=== PATIENT | female | born 1970 | race Caucasian/White ===

== ENCOUNTER 2021-09-16 02:16 | Emergency (ER) | payer MEDICAID, OTHER ==
[~2021-09-16] VITALS: Ht 170.2 cm; Wt 59.0 kg
[2021-09-16 02:20] VITALS: BP 135/88
== END 2021-09-16 04:45 | disposition left against medical advice (07) ==
LOC: ER 02:16
DX: M54.9 Dorsalgia, unspecified (principal); Z53.21 Procedure and treatment not carried out due to patient leaving prior to being seen by health care provider

== ENCOUNTER → 2022-02-09 | Emergency (ER) | payer MEDICAID ==
[~2022-02-09] VITALS: Ht 170.2 cm; Wt 60.0 kg
[~2022-02-09] MED LIST: CYCL-837 PO; IBUPROFEN 600 MG TAB PO ONE
[2022-02-09 03:36] VITALS: BP 136/75
== END | disposition home or self-care (01) ==
LOC: ER 02:52
DX: M41.24 Other idiopathic scoliosis, thoracic region (principal)
CPT/HCPCS: 72070

== ENCOUNTER 2023-09-13 23:40 | Emergency (ER) | payer MEDICAID ==
[~2023-09-13] VITALS: Ht 170.2 cm; Wt 60.0 kg
[~2023-09-13 23:40] MED LIST changes: +IBUP-1454 PO; -IBUPROFEN 600 MG TAB PO ONE
[2023-09-14 01:11] LABS: Basophils # (auto) 0 10 ^3/uL (0-0.2); Eosinophils # (auto) 0.1 10 ^3/uL (0-0.8); Hematocrit 38.8 % (36.0-46.0); Hemoglobin 12.9 g/dL (12.2-16.2); Lymphocytes # (auto) 1.4 10 ^3/uL (0.4-5.4); Lymphocytes % (auto) 34.1 % (10.0-50.0); Mean Corpuscular Hemoglobin 28.9 pg (28.0-32.0); Mean Corpuscular Hgb Conc. 33.2 g/dL (32.0-36.0); Mean Corpuscular Volume 87.1 fL (80.0-100.0); Monocytes # (auto) 0.3 10 ^3/uL (0-1.3); Monocytes % (auto) 7.5 % (0.0-12.0); Neutrophils # (auto) 2.2 10 ^3/uL (1.6-8.6); Neutrophils % (auto) 54.4 % (37.0-80.0); Nucleated Red Blood Cells % 0.1 %; Red Blood Cells 4.46 10^6/uL (4.0-5.20); Red Cell Distribution Width 13.7 % (11.8-14.3)
[2023-09-14 01:26] LABS: Alanine Aminotransferase 14 U/L (7-40); Alkaline Phosphatase 100 U/L (46-116); Calcium 9.7 mg/dL (8.7-10.4); Carbon Dioxide 29 mmol/L (20-30); Chloride 108 mmol/L (98-107); Glucose 83 mg/dL (74-106)
[2023-09-14 01:27] LABS: Albumin 4.5 g/dL (3.2-4.8); Anion Gap 2 (5-15); Aspartate Aminotransferase 12 U/L (13-40); BUN/Creatinine Ratio 22.2 (10.0-20.0); Bilirubin, Total 0.5 mg/dL (0.2-1.0); Blood Urea Nitrogen 18 mg/dL (9-23); Potassium 3.8 mmol/L (3.5-5.1); Sodium 139 mmol/L (136-145); Total Protein 7.1 g/dL (5.7-8.2)
[2023-09-14] MEDS: IBUPROFEN 600 MG TAB PO ONE (02:11)
[2023-09-14 02:15] VITALS: BP 139/89; PULSE 84; RESP 18; TEMP 98; O2SAT 98
== END 2023-09-14 02:18 | disposition home or self-care (01) ==
LOC: ER 23:40
DX: I27.1 Kyphoscoliotic heart disease (principal); M41.20 Other idiopathic scoliosis, site unspecified; G89.29 Other chronic pain; M54.50 Low back pain, unspecified
CPT/HCPCS: 36415; 80053; 85025

== ENCOUNTER 2024-09-10 01:29 | Emergency (ER) | payer MEDICAID ==
[~2024-09-10] VITALS: Ht 165.1 cm; Wt 59.4 kg
--- NOTE | 2024-09-10 02:00 | ED.PDOC ---
General HPI Comments This is a 64-year-old female C/C of "greenish" vaginal discharge x1 week. Patient also reports dysuria. Pt denies hematuria, odor, pelvic or back pain. Denies fever, chills, nausea or vomiting notes no abdominal pain chest pain shortness breath or dizziness. Time Seen by MD: 01:31 Primary Care Provider: ELIEL Reviewed notes: Nurses Notes, Medications, Allergies Allergies: Coded Allergies: NO KNOWN ALLERGIES (Unverified , 09/16/21) Home Meds Active Scripts Doxycycline Hyclate (Doxycycline Hyclate) 100 Mg Cap, 100 MG PO BID for 10 Days, #20 CAP Prov:NABIL URBANO [facility] 09/10/24 Fluconazole (Fluconazole) 200 Mg Tab, 1 TAB PO ONCE for 1 Day, #1 TAB Prov:NABIL URBANO [facility] 09/10/24 Valacyclovir Hcl (Valtrex) 1 Gm Tab, 1 TAB PO DAILY for 10 Days, #10 TAB Prov:NABIL URBANO [facility] 09/10/24 Ibuprofen (Ibuprofen) 600 Mg Tab, 1 TAB PO TID, #30 TAB Prov:TRUDY AVILA [facility] 07/03/23 Cyclobenzaprine Hcl (Cyclobenzaprine Hcl) 5 Mg Tab, 1 TAB PO QPM PRN for 2 Days, #2 TAB Prov:BHARATH MENDEZ [employer] 02/09/22 Information Source: Patient Past Medical History PAST MEDICAL HISTORY: Denies Surgical History: Denies all surgeries [employer] History: No Pertinent [employer] History Family History Family History: Reviewed,noncontributory to illness Social History Smoker: Non-Smoker Alcohol: Denies ETOH Use Drugs: Denies Drug Use Constitutional: denies: chills, diaphoresis, fatigue, fever, malaise, sweats, weakness, others EENTM: denies: blurred vision, double vision, ear bleeding, ear discharge, ear drainage, ear pain, ear ringing, eye pain, eye redness, hearing loss, mouth pain, mouth swelling, nasal discharge, nose bleeding, nose congestion, nose pain, photophobia, tearing, throat pain, throat swelling, voice changes, others Respiratory: denies: cough, hemoptysis, orthopnea, SOB at rest, shortness of breath, SOB with excertion, stridor, wheezing, others Cardiovascular: denies: chest pain, dizzy spells, diaphoresis, Dyspnea on exertion, edema, irregular heart beat, left arm pain, lightheadedness, palpitati ons, PND, syncope, others Gastrointestinal: denies: abdomen distended, abdominal pain, blood streaked bowels, constipated, diarrhea, dysphagia, difficulty swallowing, hematemesis, melena, nausea, poor appetite, poor fluid intake, rectal bleeding, rectal pain, vomiting, others Genitourinary: reports: burning, vagina discharge; denies: abnormal vagina bleeding, dyspareunia, dysuria, flank pain, frequency, hematuria, incontinence, pain, , urgency, others Neurological: denies: dizziness, fainting, headache, left sided numbness, left sided weakness, numbness, paresthesia, pre-existing deficit, right sided numbness, right sided weakness, seizure, speech problems, tingling, tremors, weakness, others Musculoskeletal: denies: back pain, gout, joint pain, joint swelling, muscle pain, muscle stiffness, neck pain, others Integumetry: denies: bruises, change in color, change in hair/nails, dryness, laceration, lesions, lumps, rash, wounds, others Allergic/Immunocompromised: denies: Difficulty Healing, Frequent Infections, Hives, Itching, others Hematologic/Lymphatic: denies: anemia, blood clots, easy bleeding, easy bruising, swollen glands, others Endocrine: denies: excessive hunger, excessive sweating, excessive thirst, excessive urination, flushing, intolerance to cold, intolerance to heat, unexplained weight gain, unexplained weight loss, others Psychiatric: denies: anxiety, bipolar disorder, depression, hopeless, panic disorder, schizophrenia, sleepless, suicidal, others Physical Exam General Appearance: No Apparent Distress, Normal HEENT: Pharynx Normal Neck: Full Range of Motion, Non-Tender Respiratory: Lungs Clear, No Respiratory Distress, Normal Breath Sounds Cardiovascular: No Edema, No JVD, No Murmur, No Gallop, Normal Peripheral Pulses, Regular Rate/Rhythm Breast Exam: Deferred Gastrointestinal: No Organomegaly, Non Tender, No Pulsatile Mass, Normal Bowel Sounds, Soft, Other (Negative CVA tenderness) Genitalia: Deferred Pelvic: Deferred Rectal: Deferred Extremities: Normal capillary refill, Normal inspection, Normal range of motion, Non-tender, No pedal edema Musculoskeletal : Apperance: Normal Neurologic: Alert, alcoholism worker II-XII nml as Tested, No Motor Deficits, Normal Affect, Normal Mood, No Sensory Deficits Cerebellar Function: Normal Reflexes: Normal Skin: Dry, Normal Color, Warm Lymphatic: No Adenopathy Was a procedure done? Was a procedure done?: No Differential Diagnosis Kidney stone (Female): Pyelonephritis, Urinary obstruction, Urolithiasis X-Ray, Labs, Meds, VS Vital Signs Date Time Temp Pulse Resp B/P (MAP) Pulse Ox O2 Delivery O2 Flow Rate FiO2 09/10/24 01:30 98.2 98 17 148/91 (110) 98 98.2 Lab Test 09/10/24 02:30 Range/Units Urine Color Yellow Yellow Urine Clarity Clear Clear Urine pH 6.5 5.0-9.0 Urine Specific [place] 1.030 1.001-1.035 Urine Protein Negative Negative Urine Ketones Negative Negative Urine Blood Negative Negative /uL Urine Nitrite Negative Negative Urine Bilirubin Negative Negative Urine Urobilinogen 2 H Negative mg/dL Urine Leukocyte Esterase 1+ Negative /uL Urine RBC 2 0 - 4 /hpf Urine Microscopic WBC 6 H 0-5 /HPF Urine Squamous Epithelial Cells Few <5 /hpf Urine Bacteria None seen None Seen /hpf Urine Mucus Few None Seen Urine Glucose Normal Normal mg/dL Current Medications Medications (Trade) Dose Ordered Sig/Lori Route Start Time Stop Time Status Last Admin Ceftriaxone Sodium (Rocephin) 1,000 mg ONCE ONCE IM 09/10/24 03:45 09/10/24 03:46 DC 09/10/24 04:18 X-Ray, Labs, Meds, VS Comment Patient given Rocephin 1 g IM for UTI and possible STD. Script trial of doxycycline twice daily times 10 days and fluconazole. 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 Advice take medications as prescribed at effects discussed. Follow up with the PCP in two days ER return precautions given patient indicates understanding and agrees with discharge plan of care. Time of 1ST Reevaluation: 02:00 Reevaluation 1ST: Unchanged Time of 2ND Reevaluation: 03:38 Reevaluation 2ND: Improved Patient Education/Counseling: Diagnosis, Treatment, Prognosis, Need For Follow Up Family Education/Counseling: No Family Present Departure 1 Departure Time of Disposition: 03:38 Impression: Primary Impression: Cystitis Additional Impressions: Vaginitis Qualified Codes: N76.0 - Acute vaginitis Herpes simplex type 2 infection Disposition: HOME / SELF CARE / HOMELESS Condition: Stable e-Prescriptions Doxycycline Hyclate (Doxycycline Hyclate) 100 Mg Cap 100 MG PO BID for 10 Days, #20 CAP Prov: NABIL URBANO 09/10/24 Fluconazole (Fluconazole) 200 Mg Tab 1 TAB PO ONCE for 1 Day, #1 TAB Prov: NABIL URBANO 09/10/24 Valacyclovir Hcl (Valtrex) 1 Gm Tab 1 TAB PO DAILY for 10 Days, #10 TAB Prov: NABIL URBANO 09/10/24 Discharged With: Self Critical Care Note Critical Care Time?: No Stability Stability form required: No NABIL URBANO September 10, 2024 02:00
[2024-09-10 02:49] LABS: Urine Bacteria None Seen /hpf (None Seen)
[2024-09-10 02:59] LABS: Urine Blood Negative /uL (Negative); Urine Clarity Clear (Clear); Urine Color Yellow (Yellow); Urine Mucus FEW (None Seen); Urine Protein, UAD Negative (Negative); Urine Squamous Epithelial Cell FEW /hpf (<5); Urine Urobilinogen 2 mg/dL (Negative); Urine WBC 6 /HPF (0-5); Urine pH 6.5 (5.0-9.0)
[2024-09-10] MEDS ORDERED: DOXY100C4 PO (03:38)
[2024-09-10] MEDS ORDERED: VALA1TAB PO (03:38)
[2024-09-10] MEDS ORDERED: FLUC200T50 PO (03:38)
[2024-09-10] MEDS: cefTRIAXone SOD 1,000 MG VL IM ONE (04:18)
[2024-09-10 04:25] VITALS: BP 133/96; TEMP 97.7
[2024-09-10 04:26] VITALS: PULSE 99; RESP 20; O2SAT 98
== END 2024-09-10 04:24 | disposition home or self-care (01) ==
LOC: ER 01:29
DX: N30.90 Cystitis, unspecified without hematuria (principal); N76.0 Acute vaginitis; A60.09 Herpesviral infection of other urogenital tract; Z79.624 Long term (current) use of inhibitors of nucleotide synthesis; Z79.1 Long term (current) use of non-steroidal anti-inflammatories (NSAID); Z79.899 Other long term (current) drug therapy
CPT/HCPCS: 81001; 96372; 99283; J0696